=== PATIENT | male | born 1955 | race Asian ===

== ENCOUNTER → 2018-07-25 | Outpatient (REF) | payer MEDICARE | LOC: M SFHCLERA 16:09 | PROVIDERS: ATTEND Nurse Practitioner Family | DX: R53.81 Other malaise (principal) ==

== ENCOUNTER 2020-02-07 11:26 | Emergency (ER) | payer MEDICARE, SELFPAY ==
[~2020-02-07] VITALS: Ht 162.6 cm; Wt 68.7 kg
[2020-02-07 12:08] LABS: BASO % 0.4 % (0.0-1.0); EOS # 0.1 10^3/uL (0.0-0.5); EOS % 1.5 % (0.0-3.0); LYMPH # 1.7 10^3/uL (1.5-5.0); LYMPH % 31.7 % (24.0-44.0); MEAN CORPUSCULAR HEMOGLOBIN 29.5 pg (27.0-33.0); MEAN CORPUSCULAR HGB CONC 33.3 g/dl (32.0-36.5); MEAN CORPUSCULAR VOLUME 88.6 fl (80.0-96.0); MONO # 0.7 10^3/uL (0.0-0.8); MONO % 12.7 % (0.0-5.0); NEUTROPHILS # 2.9 10^3/uL (1.5-8.5); NEUTROPHILS % 53.5 % (36.0-66.0); PLATELET COUNT, AUTOMATED 161 10^3/uL (150-450); RED BLOOD COUNT 5.08 10^6/uL (4.30-6.10); WHITE BLOOD COUNT 5.4 10^3/uL (4.0-10.0)
--- NOTE | 2020-02-07 12:10 | REPVR ---
PROCEDURE INFORMATION: Exam: XR Chest, 1 View Exam date and time: 02/07/2020 11:56 AM Age: 64 years old Clinical indication: Other: Weakness TECHNIQUE: Imaging protocol: XR of the chest Views: Frontal portable upright view of the chest. COMPARISON: No relevant prior studies available. FINDINGS: Tubes, catheters and devices: EKG leads are present overlying the chest. Lungs: The lungs are clear bilaterally. The pulmonary vasculature is normal. Pleural space: No pleural effusion. No pneumothorax. Heart/Mediastinum: The heart is normal in size and contour. Vasculature: Mild tortuosity of the upper descending thoracic aorta. Bones/joints: No acute abnormality identified. Intraperitoneal space: Possible right upper quadrant 9 mm gallstone. IMPRESSION: 1. No acute cardiopulmonary abnormality identified. 2. Possible right upper quadrant 9 mm gallstone. Electronically signed by: Yan Mendoza On 02/07/2020 12:09:56 PM
[2020-02-07 12:19] LABS: INR 0.96
[2020-02-07 12:20] LABS: PARTIAL THROMBOPLASTIN TIME 27.5 SECONDS (25.0-38.4)
[2020-02-07 12:35] LABS: ALBUMIN 3.6 GM/DL (3.2-5.2); ALT/SGPT 22 U/L (12-78); BILIRUBIN,DIRECT 0.1 MG/DL (0.0-0.2); BILIRUBIN,TOTAL 0.4 MG/DL (0.2-1.0); CK-MB VALUE MASS 2.1 NG/ML (<3.6); CPK CREATINE PHOSPHOKINASE 127 U/L (39-308); LIPASE 163 U/L (73-393); MB/CK RELATIVE INDEX 1.65 (< OR =4); TROPONIN I < 0.02 NG/ML (< 0.10)
[2020-02-07] MEDS ORDERED: ISOVUE-370 76% 100ML VIAL As Ordered ONE (13:18)
--- NOTE | 2020-02-07 14:01 | REPVR ---
PROCEDURE INFORMATION: Exam: CT Abdomen And Pelvis With Contrast Exam date and time: 02/07/2020 1:26 PM Age: 64 years old Clinical indication: Abdominal pain; Localized; Left lower quadrant (llq); Additional info: Llq pain; R/O diverticulitis TECHNIQUE: Imaging protocol: Computed tomography of the abdomen and pelvis with intravenous contrast. Radiation optimization: All CT scans at this facility use at least one of these dose optimization techniques: automated exposure control; mA and/or kV adjustment per patient size (includes targeted exams where dose is matched to clinical indication); or iterative reconstruction. Contrast material: ISOVUE 370; Contrast volume: 100 ml; Contrast route: INTRAVENOUS (IV); COMPARISON: No relevant prior studies available. FINDINGS: Liver: Nonspecific 6.7 mm left lobe lateral segment hepatic hypodensity. Gallbladder and bile ducts: The extrahepatic bile ducts are dilated, measuring 7.9 mm. Mild extrahepatic biliary ductal dilatation. Pancreas: Normal. No ductal dilation. Spleen: Normal. No splenomegaly. Adrenals: Normal. No mass. Kidneys and ureters: Severely atrophic right kidney. Right renal pelvic 2.8 cm and 10.6 mm calculi. 3.1 mm benign right renal hemorrhagic cyst. 12 mm right renal benign simple cyst. Mild left renal cortical scarring. Stomach and bowel: Mild distal sigmoid colonic wall thickening. Proximal sigmoid colonic pericolonic fat lobule with mild surrounding inflammation (is series 201, image 87; series 202, image 46). Appendix: 9.3 mm appendicolith without evidence of appendicitis (series 202, image 58). Intraperitoneal space: Unremarkable. No free air. No significant fluid collection. Vasculature: Calcified phleboliths are present in the lower pelvis bilaterally. Lymph nodes: No enlarged lymph nodes. Bladder: Unremarkable as visualized. Reproductive: Unremarkable as visualized. Bones/joints: TheDiffuse osteopenia. Soft tissues: A tiny paraumbilical hernia containing only abdominal fat is noted. IMPRESSION: 1. Severely atrophic right kidney. 2. Right renal pelvic calculi. 3. Mild distal sigmoid colonic wall thickening. The finding is consistent with mild nonspecific colitis. Clinical correlation with the patient's specific symptomatology is recommended. 4. Possible proximal sigmoid colonic appendagitis. Clinical correlation is recommended. 5. Benign right renal hemorrhagic cyst. 6. Right renal benign simple cyst. 7. Mild left renal cortical scarring. 8. Mild extrahepatic biliary ductal dilatation. MRCP may be helpful if indicated. 9. Appendicolith without evidence of appendicitis. 10. Nonspecific small hepatic hypodensity. Comparison with prior studies recommended, if available. Otherwise followup may be helpful. Electronically signed by: Yan Mendoza On 02/07/2020 14:01:00 PM
[2020-02-07 14:52] VITALS: BP 114/81
--- NOTE | 2020-02-10 13:27 | ED PDOC ---
Post-Departure Follow-Up dr marsh faxed formal report of t abd/p or fu peterg Declan Castillo MD Feb 10, 2020 13:27
--- NOTE | 2020-02-15 11:29 | ECGEPIP ---
[facility] - ED Test Date: 2020-02-07 Pat Name: JOSTIN RIOS Department: Room: - Gender: Male [employer]: [place] : 1955 Requested By: Declan Castillo Order Number: [id number] Reading MD: Declan Castillo Measurements Intervals [place] Rate: 59 P: 17 WV: 161 QRS: -25 QRSD: 92 T: -11 QT: 390 QTc: 389 Interpretive Statements SINUS BRADYCARDIA BORDERLINE LEFT AXIS DEVIATION BORDERLINE ECG NONSPECIFIC STTD NO PRIOR ECG DUE TO DOWNTIME SEE SCANNED DOWNTIME REPORT
== END 2020-02-07 14:54 | disposition home or self-care (01) ==
LOC: M ED 11:26
DX: K52.9 Noninfective gastroenteritis and colitis, unspecified (principal)
CPT/HCPCS: 36415; 71045; 74177; 80047; 80076; 82550; 82553; 83605; 83690; 84484; 85025; 85610; 85730; 86850; 86900; 86901; 87507; 93005; 93041; 99285; Q9967

== ENCOUNTER → 2020-03-04 | Outpatient (REF) | payer SELFPAY ==
[2020-03-04 17:48] LABS: BASO % 0.4 % (0.0-1.0); EOS # 0.1 10^3/uL (0.0-0.5); EOS % 1.1 % (0.0-3.0); HEMATOCRIT 40.5 % (42.0-52.0); HEMOGLOBIN 13.3 g/dl (13.5-17.5); LYMPH # 1.2 10^3/uL (1.5-5.0); LYMPH % 22.4 % (24.0-44.0); MEAN CORPUSCULAR HGB CONC 32.8 g/dl (32.0-36.5); MEAN CORPUSCULAR VOLUME 88.4 fl (80.0-96.0); MONO # 0.5 10^3/uL (0.0-0.8); MONO % 9.4 % (0.0-5.0); NEUTROPHILS # 3.6 10^3/uL (1.5-8.5); NEUTROPHILS % 66.5 % (36.0-66.0); PLATELET COUNT, AUTOMATED 171 10^3/uL (150-450); RED BLOOD COUNT 4.58 10^6/uL (4.30-6.10); WHITE BLOOD COUNT 5.4 10^3/uL (4.0-10.0)
[2020-03-04 17:57] LABS: ALBUMIN 3.4 GM/DL (3.2-5.2); APPEARANCE, URINE CLEAR (CLEAR); BACTERIA, URINE AUTO NEGATIVE (NEGATIVE); BILIRUBIN, URINE AUTO NEGATIVE (NEGATIVE); BILIRUBIN,TOTAL 0.5 MG/DL (0.2-1.0); BLOOD, URINE BLOOD NEGATIVE (NEGATIVE); CALCIUM LEVEL 9.1 MG/DL (8.8-10.2); CHOLESTEROL RISK RATIO 4.375 (<5); COLOR, URINE COLORLESS (YELLOW); CREATININE FOR GFR 1.31 MG/DL (0.70-1.30); GLOMERULAR FILTRATION RATE 58.3 (>49); GLUCOSE, URINE (UA) AUTO NEGATIVE (NEGATIVE); KETONE, URINE AUTO NEGATIVE (NEGATIVE); LEUKOCYTE ESTERASE, URINE AUTO TRACE (NEGATIVE); NITRITE, URINE AUTO NEGATIVE (NEGATIVE); POTASSIUM SERUM 4.4 MEQ/L (3.5-5.1); PROTEIN, URINE AUTO NEGATIVE (NEGATIVE); RBC, URINE AUTO 0 /HPF (0-3); SPECIFIC GRAVITY URINE AUTO 1.001 (1.002-1.035); SQUAMOUS EPITHELIAL CELL UR AU 0 /HPF (0-6); THYROID STIMULATING HORMONE 5.7 uIU/ML (0.358-3.740); UROBILINOGEN, URINE AUTO 0.2 mg/dL (0.0-2.0); WBC, URINE AUTO 0 /HPF (0-3)
[2020-03-04 18:40] LABS: TOTAL 25(OH) VITAMIN D 26.2 NG/ML (30.0-100.0)
[2020-03-04 18:41] LABS: FOLATE 13.8 NG/ML
[2020-03-04 18:42] LABS: HEMOGLOBIN A1c 5.7 %
== END ==
LOC: M LAB REF 16:56
PROVIDERS: ATTEND Nurse Practitioner Family
DX: K62.5 Hemorrhage of anus and rectum (principal); K92.1 Melena; Z23 Encounter for immunization; Z13.9 Encounter for screening, unspecified

== ENCOUNTER → 2020-06-06 | Outpatient (REF) | payer MEDICAID ==
[2020-06-06 13:04] LABS: BASO % 0.5 % (0.0-1.0); EOS # 0.1 10^3/uL (0.0-0.5); EOS % 1.9 % (0.0-3.0); HEMATOCRIT 44.1 % (42.0-52.0); HEMOGLOBIN 14.4 g/dl (13.5-17.5); LYMPH # 1.6 10^3/uL (1.5-5.0); LYMPH % 28.1 % (24.0-44.0); MEAN CORPUSCULAR HGB CONC 32.7 g/dl (32.0-36.5); MEAN CORPUSCULAR VOLUME 88.7 fl (80.0-96.0); MONO # 0.6 10^3/uL (0.0-0.8); MONO % 10.6 % (0.0-5.0); NEUTROPHILS # 3.4 10^3/uL (1.5-8.5); NEUTROPHILS % 58.7 % (36.0-66.0); PLATELET COUNT, AUTOMATED 173 10^3/uL (150-450); RED BLOOD COUNT 4.97 10^6/uL (4.30-6.10); WHITE BLOOD COUNT 5.8 10^3/uL (4.0-10.0)
[2020-06-06 15:21] LABS: ALBUMIN 3.6 GM/DL (3.2-5.2); BILIRUBIN,TOTAL 0.5 MG/DL (0.2-1.0); CALCIUM LEVEL 8.7 MG/DL (8.8-10.2); CHOLESTEROL RISK RATIO 4.916 (<5); CREATININE FOR GFR 1.34 MG/DL (0.70-1.30); GLOMERULAR FILTRATION RATE 56.8 (>49); POTASSIUM SERUM 4.2 MEQ/L (3.5-5.1); THYROID STIMULATING HORMONE 6.17 uIU/ML (0.358-3.740); TOTAL PROTEIN 6.7 GM/DL (6.4-8.2)
== END ==
LOC: M LAB REF 12:17
PROVIDERS: ATTEND Physician Assistant
DX: Z01.818 Encounter for other preprocedural examination (principal); Z13.220 Encounter for screening for lipoid disorders

== ENCOUNTER → 2020-06-09 | Outpatient (CLI) | payer MEDICAID | LOC: M LABSMTC 12:44 | PROVIDERS: ATTEND Anesthesiology | DX: Z01.812 Encounter for preprocedural laboratory examination (principal); Z20.822 Contact with and (suspected) exposure to COVID-19 ==

== ENCOUNTER 2020-06-14 11:45 | Day surgery (SDC) | payer MEDICAID ==
[~2020-06-14] VITALS: Ht 162.6 cm; Wt 68.2 kg
[~2020-06-14 11:45] MED LIST: LIDOCAINE 2% 100MG/5ML SDV (FOR ANES.) As Ordered ONE; NS 1,000 ML IV ONE; propofoL 200 MG/20 ML VIAL As Ordered ONE
[2020-06-14] MEDS ORDERED: PHENYLephrine 500MCG 5ML (100MCG/ML) SYRINGE As Ordered ONE (12:59)
[2020-06-14] MEDS ORDERED: propofoL 200 MG/20 ML VIAL As Ordered ONE (13:30)
--- NOTE | 2020-06-14 13:49 | ROOR ---
Patient Name: Beverly Caruso Procedure Date: 06/14/2020 12:33 PM Date of : 1955 Age: 64 Room: [facility] Gender: Male Note Status: Finalized Procedure: Colonoscopy Indications: Abdominal pain in the left lower quadrant, Rectal bleeding, Abnormal CT of the GI tract Providers: Meek Henriquez MD Referring MD: Macie De Guzman NP Requesting Provider: Medicines: Monitored Anesthesia Care Complications: No immediate complications. Procedure: Pre-Anesthesia Assessment: - Prior to the procedure, a History and Physical was performed, and patient medications and allergies were reviewed. The patient is competent. The risks and benefits of the procedure and the sedation options and risks were discussed with the patient. All questions were answered and informed consent was obtained. Patient identification and proposed procedure were verified by the physician, the nurse and the saturator in the procedure room. Mental Status Examination: alert and oriented. Airway Examination: normal oropharyngeal airway and neck mobility. Prophylactic Antibiotics: The patient does not require prophylactic antibiotics. Prior Anticoagulants: The patient has taken no previous anticoagulant or antiplatelet agents. ASA Grade Assessment: I - A normal, healthy patient. After reviewing the risks and benefits, the patient was deemed in satisfactory condition to undergo the procedure. The anesthesia plan was to use monitored anesthesia care (MAC). Immediately prior to administration of medications, the patient was re-assessed for adequacy to receive sedatives. The heart rate, respiratory rate, oxygen saturations, blood pressure, adequacy of pulmonary ventilation, and response to care were monitored throughout the procedure. The physical status of the patient was re-assessed after the procedure. The Colonoscope was introduced through the anus and advanced to the cecum, identified by appendiceal orifice and ileocecal valve. The colonoscopy was somewhat difficult due to a redundant colon. The patient tolerated the procedure well. The quality of the bowel preparation was good. Findings: The perianal and digital rectal examinations were normal. A 5 mm polyp was found in the proximal ascending colon. The polyp was sessile. The polyp was removed with a hot snare. Resection and retrieval were complete. Three sessile polyps were found in the transverse colon and hepatic flexure. The polyps were 3 to 6 mm in size. These polyps were removed with a hot snare. Resection and retrieval were complete. A 8 mm polyp was found in the sigmoid colon. The polyp was pedunculated. The polyp was removed with a hot snare. Resection and retrieval were complete. Internal hemorrhoids were found during endoscopy. The hemorrhoids were small. Impression: - One 5 mm polyp in the proximal ascending colon, removed with a hot snare. Resected and retrieved. - Three 3 to 6 mm polyps in the transverse colon and at the hepatic flexure, removed with a hot snare. Resected and retrieved. - One 8 mm polyp in the sigmoid colon, removed with a hot snare. Resected and retrieved. - Internal hemorrhoids. Recommendation: - Await pathology results. - Discharge patient to home. - Resume previous diet. - Continue present medications. - Return to my office in 3 months. Procedure Code(s): --- Professional --- 10268, Colonoscopy, flexible; with removal of tumor(s), polyp(s), or other lesion(s) by snare technique Diagnosis Code(s): --- Professional --- K63.5, Polyp of colon K64.8, Other hemorrhoids R10.32, Left lower quadrant pain K62.5, Hemorrhage of anus and rectum R93.3, Abnormal findings on diagnostic imaging of other parts of digestive tract CPT copyright 2019 [employer]. All rights reserved. The codes documented in this report are preliminary and upon business continuity director review may be revised to meet current compliance requirements. Meek Henriquez MD Meek Henriquez MD 06/14/2020 1:49:27 PM Electronically signed by Meek Henriquez MD Number of Addenda: 0 Note Initiated On: 06/14/2020 12:33 PM Estimated Blood Loss: Estimated blood loss: none.
[2020-06-14 13:50] VITALS: BP 114/79
== END 2020-06-14 14:15 | disposition home or self-care (01) ==
LOC: M OPP 11:45
PROVIDERS: ATTEND Surgery
DX: R10.32 Left lower quadrant pain (principal); K62.5 Hemorrhage of anus and rectum; R93.3 Abnormal findings on diagnostic imaging of other parts of digestive tract; D12.2 Benign neoplasm of ascending colon; D12.5 Benign neoplasm of sigmoid colon; K64.8 Other hemorrhoids; R12 Heartburn; N26.1 Atrophy of kidney (terminal); Z87.891 Personal history of nicotine dependence
CPT/HCPCS: 45385; 88305; J2370

== ENCOUNTER → 2020-08-03 | Outpatient (REF) | payer MEDICAID ==
[2020-08-03 17:35] LABS: CALCIUM LEVEL 9.1 MG/DL (8.8-10.2); CREATININE FOR GFR 1.4 MG/DL (0.70-1.30); FREE T4 0.99 NG/DL (0.76-1.46); GLOMERULAR FILTRATION RATE 53.8 (>49); POTASSIUM SERUM 4.6 MEQ/L (3.5-5.1); THYROID STIMULATING HORMONE 4.9 uIU/ML (0.358-3.740)
== END ==
LOC: M LAB REF 16:41
PROVIDERS: ATTEND Physician Assistant
DX: N26.1 Atrophy of kidney (terminal) (principal); R94.6 Abnormal results of thyroid function studies; R94.4 Abnormal results of kidney function studies

== ENCOUNTER → 2020-09-15 | Outpatient (CLI) | payer MEDICAID ==
--- NOTE | 2020-09-15 09:29 | REP ---
INDICATION: CKD III A / ELEVATED BP W/O DZ OF HTN. COMPARISON: CT 02/07/2020. TECHNIQUE: Real-time sonographic evaluation of the kidneys is performed. Duplex Doppler evaluation of renal arteries performed. FINDINGS: Renal cortical echogenicity pattern is normal bilaterally and contours are smooth. There is no hydronephrosis bilaterally. Right kidney is markedly atrophic and hyperechoic in echotexture. Along the inferior aspect of the right kidney is a cystic structure containing a large calcification, which when correlating with the prior CT represents a large calculus in the proximal right ureter. This calcification has a maximum diameter of 3.7 cm. The prostate measures 3.3 x 3.9 x 5.3 cm. The right kidney measures 5.6 x 2.2 x 2.2 cm. Left renal dimensions are 13.2 x 4.8 x 5.0 cm. Bladder wall is trabeculated. With Doppler color evaluation ureteral jets could not be visualized. Duplex Doppler evaluation demonstrates peak systolic velocity of the abdominal aorta 72 centimeter/second. No flow could be identified within the right kidney and a main renal artery is not seen. The main left renal artery demonstrates peak systolic velocity of 67.7 centimeter/second, renal to aortic ratio 0.94. Resistive indices of the left kidney range between 0.57 and 0.62. Acceleration times range between 0.024 and 0.056. IMPRESSION: Marked right renal atrophy. Again noted is a large calculus in the proximal right ureter. No hydronephrosis bilaterally. Right renal artery cannot be visualized and there is no flow detected in the atrophic right kidney. There is no duplex Doppler sonographic evidence of significant stenosis of the left renal artery. <Electronically signed by Steve Huang > 09/15/20 0911
== END ==
LOC: M RAD 07:11
PROVIDERS: ATTEND Internal Medicine Nephrology
DX: N26.1 Atrophy of kidney (terminal) (principal); N18.31 Chronic kidney disease, stage 3a; N20.1 Calculus of ureter; R03.0 Elevated blood-pressure reading, without diagnosis of hypertension

== ENCOUNTER → 2020-10-03 | Outpatient (CLI) | payer MEDICAID | LOC: M LAB 08:34 | PROVIDERS: ATTEND Physician Assistant | DX: E03.9 Hypothyroidism, unspecified (principal) ==

== ENCOUNTER → 2020-10-03 | Outpatient (CLI) | payer MEDICAID ==
[2020-10-03 09:14] LABS: APPEARANCE, URINE CLEAR (CLEAR); BACTERIA, URINE AUTO 1+ (NEGATIVE); BILIRUBIN, URINE AUTO NEGATIVE (NEGATIVE); BLOOD, URINE BLOOD NEGATIVE (NEGATIVE); COLOR, URINE STRAW (YELLOW); GLUCOSE, URINE (UA) AUTO NEGATIVE (NEGATIVE); KETONE, URINE AUTO NEGATIVE (NEGATIVE); LEUKOCYTE ESTERASE, URINE AUTO 1+ (NEGATIVE); NITRITE, URINE AUTO NEGATIVE (NEGATIVE); PROTEIN, URINE AUTO NEGATIVE (NEGATIVE); RBC, URINE AUTO 2 /HPF (0-3); SPECIFIC GRAVITY URINE AUTO 1.002 (1.002-1.035); SQUAMOUS EPITHELIAL CELL UR AU 0 /HPF (0-6); UROBILINOGEN, URINE AUTO 0.2 mg/dL (0.0-2.0); WBC, URINE AUTO 4 /HPF (0-3)
[2020-10-03 09:15] LABS: BASO % 0.2 % (0.0-1.0); EOS # 0.2 10^3/uL (0.0-0.5); EOS % 2.5 % (0.0-3.0); HEMATOCRIT 45.7 % (42.0-52.0); LYMPH # 1.6 10^3/uL (1.5-5.0); LYMPH % 26.7 % (24.0-44.0); MEAN CORPUSCULAR HEMOGLOBIN 28.7 pg (27.0-33.0); MEAN CORPUSCULAR HGB CONC 32.8 g/dl (32.0-36.5); MEAN CORPUSCULAR VOLUME 87.5 fl (80.0-96.0); MONO # 0.7 10^3/uL (0.0-0.8); NEUTROPHILS # 3.6 10^3/uL (1.5-8.5); NEUTROPHILS % 59.3 % (36.0-66.0); PLATELET COUNT, AUTOMATED 190 10^3/uL (150-450); RED BLOOD COUNT 5.22 10^6/uL (4.30-6.10)
[2020-10-03 09:32] LABS: ERYTHROCYTE SEDIMENTATION RATE 9 mm/hr (0-20)
[2020-10-03 09:40] LABS: ALBUMIN 3.5 GM/DL (3.2-5.2); CALCIUM LEVEL 9.1 MG/DL (8.8-10.2); CREATININE FOR GFR 1.29 MG/DL (0.70-1.30); GLOMERULAR FILTRATION RATE 59.1 (>49); PHOSPHORUS LEVEL 2.9 MG/DL (2.5-4.9); POTASSIUM SERUM 4.4 MEQ/L (3.5-5.1); URIC ACID 7.2 MG/DL (3.5-7.2)
[2020-10-05 16:13] LABS: ANCA-ATYPICAL <1:20 titer (Neg:<1:20); ANTI DS-DNA AB Negative (Negative); ANTINUCLEAR ANTIBODIES DIRECT Negative (Negative); CYTOPLASMIC NEUTROP AB ANCA-C <1:20 titer (Neg:<1:20); PERINUCLEAR AB ANCA-P <1:20 titer (Neg:<1:20); SJOGREN'S ANTI SS-A <0.2 AI (0.0-0.9); SJOGREN'S ANTI SS-B <0.2 AI (0.0-0.9)
== END ==
LOC: M LAB 08:32
PROVIDERS: ATTEND Internal Medicine Nephrology
DX: N18.31 Chronic kidney disease, stage 3a (principal)

== ENCOUNTER → 2020-12-19 | Outpatient (CLI) | payer MEDICAID ==
[2020-12-19 08:58] LABS: HEMATOCRIT 44.7 % (42.0-52.0); HEMOGLOBIN 14.5 g/dl (13.5-17.5); MEAN CORPUSCULAR HEMOGLOBIN 28.5 pg (27.0-33.0); MEAN CORPUSCULAR HGB CONC 32.4 g/dl (32.0-36.5); PLATELET COUNT, AUTOMATED 185 10^3/uL (150-450); RED BLOOD COUNT 5.08 10^6/uL (4.30-6.10); WHITE BLOOD COUNT 7.2 10^3/uL (4.0-10.0)
[2020-12-19 09:09] LABS: APPEARANCE, URINE CLEAR (CLEAR); BACTERIA, URINE AUTO NEGATIVE (NEGATIVE); BILIRUBIN, URINE AUTO NEGATIVE (NEGATIVE); BLOOD, URINE BLOOD NEGATIVE (NEGATIVE); COLOR, URINE YELLOW (YELLOW); GLUCOSE, URINE (UA) AUTO NEGATIVE (NEGATIVE); KETONE, URINE AUTO NEGATIVE (NEGATIVE); LEUKOCYTE ESTERASE, URINE AUTO 1+ (NEGATIVE); NITRITE, URINE AUTO NEGATIVE (NEGATIVE); PROTEIN, URINE AUTO NEGATIVE (NEGATIVE); RBC, URINE AUTO 2 /HPF (0-3); SPECIFIC GRAVITY URINE AUTO 1.015 (1.002-1.035); SQUAMOUS EPITHELIAL CELL UR AU 0 /HPF (0-6); UROBILINOGEN, URINE AUTO 0.2 mg/dL (0.0-2.0); WBC, URINE AUTO 10 /HPF (0-3)
[2020-12-19 09:30] LABS: ALBUMIN 3.5 GM/DL (3.2-5.2); CALCIUM LEVEL 9.2 MG/DL (8.8-10.2); CHOLESTEROL RISK RATIO 4.735 (<5); CREATININE FOR GFR 1.35 MG/DL (0.70-1.30); GLOMERULAR FILTRATION RATE 56.1 (>49); PHOSPHORUS LEVEL 3.4 MG/DL (2.5-4.9); POTASSIUM SERUM 3.7 MEQ/L (3.5-5.1)
== END ==
LOC: M LAB 08:20
PROVIDERS: ATTEND Internal Medicine Nephrology
DX: N18.31 Chronic kidney disease, stage 3a (principal)